=== PATIENT | female | born 1970 | race African-American/Black ===

== ENCOUNTER 2018-07-28 22:44 | Emergency (ER) | payer OTHER ==
[~2018-07-28] VITALS: Ht 177.8 cm; Wt 49.0 kg
[~2018-07-28 22:44] MED LIST: ALBU6.7H; BUSP5TAB3; ESCI5TAB; FOLI-43 PO; LORA5TAB8; MULT-783 PO; OMEP20CA10; OMEP20CA10 PO; PROP10TA10; QUET25TA; THIA100T13 PO
[2018-07-29] MEDS ORDERED: LORAZEPAM 0.5MG TABLET PO ONE (00:15)
[2018-07-29 00:22] LABS: BASOPHILS % 0.8 % (0.0-2.0); EOSINOPHILS % 2.1 % (0.0-5.0); HEMATOCRIT. 41.7 % (36.0-48.0); HEMOGLOBIN. 14.2 g/dL (12.0-16.0); LYMPHOCYTES % 50.4 % (20.0-50.0); MEAN CORPUSCULAR HEMOGLOBIN 34.7 pg (28.0-32.0); MEAN CORPUSCULAR VOLUME 101.8 fL (81.0-99.0); MEAN PLATELET VOLUME 8.3 fl (7.4-10.4); MONOCYTES % 8.5 % (2.0-8.0); NEUTROPHILS % 38.2 % (40.0-76.0); PLATELET 232 x1000/uL (130-400)
[2018-07-29 00:23] LABS: CHLORIDE 113 mEq/L (98-107)
[2018-07-29 00:31] LABS: LDL CHOLESTEROL 67 mg/dL (5-100)
[2018-07-29 00:38] LABS: CLARITY URINE CLEAR (CLEAR); COLOR URINE YELLOW (YELLOW); KETONES URINE NEGATIVE (NEGATIVE); LEUKOCYTE ESTERASE URINE NEGATIVE (NEGATIVE); NITRITE URINE NEGATIVE (NEGATIVE); OCCULT BLOOD URINE 1+ (NEGATIVE); PROTEIN URINE NEGATIVE (NEGATIVE); SPECIFIC GRAVITY URINE 1.006 (1.005-1.030); UROBILINOGEN URINE 0.2 E.U./dL (0.2-1.0)
[2018-07-29 00:44] LABS: *AMPHETAMINES SCREEN URINE NEGATIVE (NEGATIVE); *BARBITURATES SCREEN URINE NEGATIVE (NEGATIVE); *BENZODIAZEPINES SCREEN URINE NEGATIVE (NEGATIVE)
[2018-07-29 00:45] LABS: *COCAINE SCREEN URINE NEGATIVE (NEGATIVE); METHADONE URINE SCREEN NEGATIVE (NEGATIVE); OPIATES URINE SCREEN NEGATIVE (NEGATIVE); PHENCYCLIDINE URINE SCREEN NEGATIVE (NEGATIVE)
[2018-07-29 00:57] LABS: CANNABINOID URINE SCREEN PRESUMTIVE POSITIVE (NEGATIVE)
[2018-07-29 01:07] LABS: PROTHROMBIN TIME 10.6 sec (9.6-11.0)
[2018-07-29] MEDS ORDERED: IOHEXOL-350 100 ML BOTTLE ONE (04:37)
[2018-07-29 08:20] VITALS: BP 115/85
== END 2018-07-29 08:29 | disposition short-term general hospital (02) ==
LOC: ER 22:44 → CANBEDREQ 07-29 09:16
DX: I63.9 Cerebral infarction, unspecified (principal); F41.9 Anxiety disorder, unspecified; I11.0 Hypertensive heart disease with heart failure; I50.9 Heart failure, unspecified; J45.909 Unspecified asthma, uncomplicated; F17.200 Nicotine dependence, unspecified, uncomplicated; F12.10 Cannabis abuse, uncomplicated; Z98.51 Tubal ligation status; Z95.0 Presence of cardiac pacemaker; Z79.899 Other long term (current) drug therapy
CPT/HCPCS: 36415; 70450; 70496; 71045; 80053; 80305; 81003; 81025; 82962; 83605; 83721; 84484; 85025; 85610; 93005; 99285; 99406; Q9967; Z7610